=== PATIENT | male | born 1990 ===

== ENCOUNTER 2023-07-16 05:22 | Day surgery (SDC) | payer OTHER ==
[2023-07-15 14:39] VITALS: BMI 27.8
[2023-07-16 14:58] VITALS: TEMP 97.7
[2023-07-16 15:12] VITALS: BP 117/78; PULSE 62; RESP 15
== END 2023-07-16 15:20 | disposition home or self-care (01) ==
LOC: JASU-ENDO 05:22
PROVIDERS: ATTEND Student in an Organized Health Care Education/Training Program
PROC: 0DBN8ZX Excision of Sigmoid Colon, Via Natural or Artificial Opening Endoscopic, Diagnostic (ICD-10-PCS; 2023-07-16)
PROC: 0DBB8ZX Excision of Ileum, Via Natural or Artificial Opening Endoscopic, Diagnostic (ICD-10-PCS; principal; 2023-07-16 13:30)
DX: K64.8 Other hemorrhoids (principal)